=== PATIENT | male | born 1950 | race Two or more races ===

== ENCOUNTER 2021-10-11 09:51 | Outpatient (AMB) | payer OTHER, SELFPAY ==
[2021-10-11 10:01] VITALS: BP 182/75; PULSE 85; TEMP 36.4; BMI 26.0
--- NOTE | 2021-10-11 10:01 | U.OPVIS1 ---
Intake Vital Signs 10/11/21 10:01 Height 1.83 m Weight 87.09 kg BMI 26.0 BP 182/75 H Blood Pressure Location Left Upper Arm Position Sitting Pulse 85 Pulse Source Monitor Temp 97.5 F Temp Source Temporal Artery Scan Intake Visit Reasons: Uro Prostate Ultrasound/vaccinated Radiation Control Technician Required: Yes Is patient in pain?: No Allergy Allergies No Known Allergies Allergy (Unknown, Uncoded 10/11/21 10:02) Home Meds Medication Reconciliation metformin 1,000 mg tablet (Glucophage) 1,000 mg PO BID #0 tab 05/17/17 [History Confirmed 10/11/21] empagliflozin 10 mg tablet (Jardiance) 10 mg PO QDAY 06/27/21 [History Confirmed 10/11/21] glimepiride 4 mg tablet 4 mg PO BID 06/27/21 [History Confirmed 10/11/21] tamsulosin 0.4 mg capsule 0.4 mg PO QHS 08/05/21 [History Confirmed 10/11/21] Office Procedures Uro Level of Care Nursing/Assessment/Reassessment Patient Status: Established Patient Nursing Assessment/Reassessment: Update [facility] data in EMR, Vital Signs and Medication Reconciliation Coordination of Care: Comp Pt/Fam Ed for care Special Needs: Language special needs Miscellaneous Interventions: Phys Asssit w/procedure Established Patient Point Assignment: 80 Procedure IM Injection: No Transrectal Ultrasound: Yes Uro Prostate US My Supervising Practitioner for this visit is:: Hugo Jacob Prostate US: Yes Informed consent given: Yes Consent signed: Yes Time out staff in room: Yes IMMEDIATELY PRIOR TO START OF PROCEDURE: ALL MEMBERS of the procedural team are in attendance and actively involved together in the TIME-OUT and verified as applies to the patient:: Correct Patient Identity, Correct Site, Consent Signed and Accurate, Team Agrees on Procedure, Patient has completed pre-procedure preparations, Fleet Enema and Correct Patient Positioning Time out verified: Yes Time out date: 10/11/21 Time out time: 10:12 Urology Prostate Ultrasound PSA Density (ng/cc):: 2.41 Prostate Height (mm):: 3.72 Prostate Width (mm):: 5.74 Prostate Length (mm):: 5.86 Prostate volume (cc):: 63.40 Hypoechogenic areas exist which could represent areas of malignancy: No Hyperdense schos are seen suggestive of calculi in the capsule: Yes Seminal vesicles:: Normal Prostate median lobe:: Absent Bladder exam:: Abnormal (Large residual urine patient was sent to bathroom he voided 200 cc patient is on tamsulosin 0.4 mg p.o. daily) Documentation images were taken: Yes Visit Diagnosis: BPH with urinary obstruction and LUTS
== END 2021-10-11 10:42 | disposition home or self-care (01) ==
LOC: HODURO 09:51
PROVIDERS: PCP Internal Medicine; Visit Provider Urology

== ENCOUNTER → 2024-07-07 | Outpatient (CLI) | payer OTHER, SELFPAY ==
[2024-07-07 08:34] LABS: Hemoglobin 14.8 g/dL (13.5-16.0); Lymphocytes % (Auto) 21 % (10-50); Mean Corpuscular HGB Conc 33.6 g/dl (31.0-37.0); Mean Corpuscular Volume 92 fL (80-100); Neutrophils % (Auto) 60 % (37-80); Platelet Count 272 Thou/mm3 (140-440); RDW Standard Deviation 44.5 fL (35.1-43.9); Red Blood Count 4.77 Miln/mm3 (4.50-5.90)
[2024-07-07 08:35] LABS: Basophils # (Auto) 0.1 Thou/mm3 (0.0-0.2); Basophils % (Auto) 1 % (0-2.5); Eosinophils # (Auto) 0.7 Thou/mm3 (0.0-0.5); Eosinophils % (Auto) 10 % (0-10); Immature Granulocytes % (Auto) 0 % (0-0); Immature Granulocytes Auto 0.01 Thou/mm3 (0.00-0.00); Lymphocytes # (Auto) 1.4 Thou/mm3 (1.0-4.8); Monocytes # (Auto) 0.6 Thou/mm3 (0.0-0.8); Monocytes % (Auto) 8 % (0-12); Neutrophils # (Auto) 4.2 Thou/mm3 (1.8-7.7); Nucleated Red Blood Cell % 0 /100 WBC (0)
[2024-07-07 08:50] LABS: Alanine Aminotransferase 26 U/L (10-49); Albumin, Serum 4.7 gm/dL (3.4-4.8); Albumin/Globulin Ratio 1.7 (1.2-2.2); Alkaline Phosphatase 81 U/L (46-116); Anion Gap 9 (7-16); Aspartate Amino Transferase 14 U/L (0-34); BUN/Creatinine Ratio 15 Ratio (12-20); Bilirubin,Total 0.5 mg/dL (0.3-1.2); Blood Urea Nitrogen 15 mg/dL (9-23); Carbon Dioxide 28.3 mMol/L (20.0-31.0); Chloride 104 mMol/L (98-107); Cholesterol 175 mg/dL (132-200); Free T4 (Free Thyroxine) 1.46 ng/dL (0.89-1.76); Globulin 2.7 gm/dL (2.3-3.5); Glucose 173 mg/dL (74-106); HDL Cholesterol 44 mg/dL (40-60); LDL Cholesterol,Calculated 108 mg/dL (0-130); Osmolality,Calculated 286 (275-295); Potassium 4.5 mMol/L (3.4-5.1); Sodium 141 mMol/L (136-145); Total Protein 7.4 gm/dL (5.7-8.2); Triglycerides 117 mg/dL (30-150); eGFR > 60 See Note
[2024-07-07 08:55] LABS: Prostate Specific Antigen 3.75 ng/mL (0-4.00)
[2024-07-07 09:00] LABS: Vitamin D 25 Hydroxy Total 12.7 ng/mL (7.3-40.2)
[2024-07-07 09:30] LABS: Glucose Estimated Average 197 mg/dL (80-131); Hemoglobin A1C 8.5 % Hgb (4.8-6.0)
== END | disposition home or self-care (01) ==
PROVIDERS: PCP Internal Medicine; Referring Provider Internal Medicine; Visit Provider Internal Medicine
DX: Z00.00 Encounter for general adult medical examination without abnormal findings (principal); N40.1 Benign prostatic hyperplasia with lower urinary tract symptoms; E55.9 Vitamin D deficiency, unspecified
CPT/HCPCS: 36415; 80053; 80061; 82306; 83036; 84153; 84439; 84443; 85025

== ENCOUNTER → 2024-12-11 | Outpatient (BNVA) | payer OTHER, SELFPAY | END | disposition home or self-care (01) | PROVIDERS: PCP Internal Medicine; Referring Provider Internal Medicine; Visit Provider Urology | DX: N40.1 Benign prostatic hyperplasia with lower urinary tract symptoms (principal); N13.8 Other obstructive and reflux uropathy; N41.9 Inflammatory disease of prostate, unspecified; N50.3 Cyst of epididymis; N20.0 Calculus of kidney; E11.9 Type 2 diabetes mellitus without complications | CPT/HCPCS: 96372; 99203; J0696; J3490; G0463 ==

== ENCOUNTER → 2025-01-29 | Outpatient (BNVA) | payer OTHER, SELFPAY | END | disposition home or self-care (01) | PROVIDERS: PCP Internal Medicine; Referring Provider Internal Medicine; Visit Provider Urology | DX: N40.1 Benign prostatic hyperplasia with lower urinary tract symptoms (principal); R39.12 Poor urinary stream; E11.9 Type 2 diabetes mellitus without complications | CPT/HCPCS: 51741; 51798 ==

== ENCOUNTER → 2025-02-06 | Outpatient (BNVA) | payer OTHER, SELFPAY | END | disposition home or self-care (01) | PROVIDERS: PCP Internal Medicine; Referring Provider Internal Medicine; Visit Provider Urology | DX: N40.1 Benign prostatic hyperplasia with lower urinary tract symptoms (principal); N13.8 Other obstructive and reflux uropathy; R39.198 Other difficulties with micturition; E11.9 Type 2 diabetes mellitus without complications | CPT/HCPCS: 76872 ==

== ENCOUNTER → 2025-05-01 | Outpatient (CLI) | payer OTHER, SELFPAY ==
[2025-05-01 08:45] LABS: Basophils # (Auto) 0.1 Thou/mm3 (0.0-0.2); Basophils % (Auto) 1 % (0-2.5); Eosinophils # (Auto) 0.4 Thou/mm3 (0.0-0.5); Eosinophils % (Auto) 6 % (0-10); Hematocrit 41.1 % (41.0-53.0); Hemoglobin 14.2 g/dL (13.5-16.0); Immature Granulocytes Auto 0.02 Thou/mm3 (0.00-0.00); Lymphocytes # (Auto) 1.5 Thou/mm3 (1.0-4.8); Lymphocytes % (Auto) 23 % (10-50); Mean Corpuscular HGB Conc 34.5 g/dl (31.0-37.0); Mean Corpuscular Hemoglobin 31.3 pg (25.0-35.0); Mean Corpuscular Volume 91 fL (80-100); Monocytes # (Auto) 0.6 Thou/mm3 (0.0-0.8); Monocytes % (Auto) 9 % (0-12); Neutrophils # (Auto) 4.1 Thou/mm3 (1.8-7.7); Neutrophils % (Auto) 61 % (37-80); Nucleated Red Blood Cell # 0.00 Thou/mm3 (0.00-0.00); Nucleated Red Blood Cell % 0 /100 WBC (0); Platelet Count 239 Thou/mm3 (140-440); RDW Standard Deviation 43.0 fL (35.1-43.9); Red Blood Count 4.53 Miln/mm3 (4.50-5.90); White Blood Count 6.6 Thou/mm3 (3.8-10.6)
[2025-05-01 08:54] LABS: Glucose Estimated Average 212 mg/dL (80-131); Hemoglobin A1C 9.0 % Hgb (4.8-6.0)
[2025-05-01 09:00] LABS: Prostate Specific Antigen 3.23 ng/mL (0-4.00)
[2025-05-01 09:01] LABS: Vitamin D 25 Hydroxy Total 23.9 ng/mL (7.3-40.2)
[2025-05-01 09:02] LABS: Alanine Aminotransferase 20 U/L (10-49); Albumin, Serum 4.4 gm/dL (3.4-4.8); Albumin/Globulin Ratio 1.8 (1.2-2.2); Alkaline Phosphatase 80 U/L (46-116); Anion Gap 9 (7-16); Aspartate Amino Transferase 15 U/L (0-34); BUN/Creatinine Ratio 16 Ratio (12-20); Bilirubin,Total 0.4 mg/dL (0.3-1.2); Blood Urea Nitrogen 14 mg/dL (9-23); Calcium 10.1 mg/dL (8.3-10.6); Calcium (Corrected) 10.1 mg/dL (8.5-10.1); Carbon Dioxide 27.7 mMol/L (20.0-31.0); Cardiac Risk Estimate 3.8 RATIO (4.0-6.7); Chloride 105 mMol/L (98-107); Cholesterol 157 mg/dL (132-200); Creatinine (Component) 0.9 mg/dL (0.6-1.3); Free T4 (Free Thyroxine) 1.37 ng/dL (0.89-1.76); Globulin 2.5 gm/dL (2.3-3.5); Glucose 153 mg/dL (74-106); HDL Cholesterol 41 mg/dL (40-60); LDL Cholesterol,Calculated 87 mg/dL (0-130); Osmolality,Calculated 286 (275-295); Potassium 4.6 mMol/L (3.4-5.1); Sodium 142 mMol/L (136-145); Thyroid Stimulating Hormone 3.02 uIU/mL (0.55-4.78); Total Protein 6.9 gm/dL (5.7-8.2); Triglycerides 145 mg/dL (30-150); eGFR > 60 See Note
[2025-05-01 11:16] LABS: Creatinine MALB Rnd Ur 60 mg/dL (30-125); Microalbumin, Random Urine < 3 mg/L (0-300)
== END | disposition home or self-care (01) ==
LOC: COPL 07:36
PROVIDERS: PCP Internal Medicine; Referring Provider Internal Medicine; Visit Provider Internal Medicine
DX: Z00.00 Encounter for general adult medical examination without abnormal findings (principal); N40.1 Benign prostatic hyperplasia with lower urinary tract symptoms; E55.9 Vitamin D deficiency, unspecified
CPT/HCPCS: 36415; 80053; 80061; 82043; 82306; 82570; 83036; 84153; 84439; 84443; 85025

== ENCOUNTER → 2025-05-28 | Outpatient (BNVA) | payer OTHER, SELFPAY | END | disposition home or self-care (01) | PROVIDERS: PCP Internal Medicine; Referring Provider Internal Medicine; Visit Provider Urology | DX: N40.1 Benign prostatic hyperplasia with lower urinary tract symptoms (principal); R39.12 Poor urinary stream; E11.9 Type 2 diabetes mellitus without complications | CPT/HCPCS: 51741; 51798 ==

== ENCOUNTER → 2025-06-02 | Outpatient (CLI) | payer OTHER, SELFPAY ==
--- NOTE | 2025-06-02 13:03 | XR_ITS ---
Examination: CT brain head without contrast. 2-D sagittal coronal reconstructions Date and time of exam:June 02, 2025, 1328 hours INDICATIONS: Headaches after falling today CTDI: vol (mGy):54.2 DLP: (mGycm):1081 Technique: Multiple CT axial sections of the brain have been obtained, 5 mm slice thickness. Contrast has not been administered. 2-D sagittal, coronal reconstructions have been obtained Low dose protocols were performed. One or more of the following dose reduction techniques were used; automated exposure control, adjustment of the mA and/or KV according to patient size, use of iterative reconstruction technique. Findings: No significant ventricular enlargement. Intra-axial or extra-axial hemorrhage density is not seen. No mass effect or midline shift Basal cisterns are not remarkable. Fourth ventricle is midline. Cranial vault intact. Impression: Negative for acute hemorrhage, mass effect or midline shift
--- NOTE | 2025-06-02 13:03 | XR_ITS ---
Examination: CT soft tissue neck, without intravenous contrast. 2-D coronal reconstructions. 2-D sagittal reconstructions. Date and time of exam :June 02, 2025, 1330 hours INDICATIONS: Patient fell today with injury to the neck, neck pain. CTDI: vol (mGy):50.6 DLP: (mGycm):494 Technique: 1.25 mm axial sections of the neck of the obtained. Coronal and sagittal reconstructions have been obtained. Low dose protocols were performed. One or more of the following dose reduction techniques were used; automated exposure control, adjustment of the mA and/or KV according to patient size, use of iterative reconstruction technique. Findings: Satisfactory alignment cervical vertebral lesion Moderate to advanced degenerative disc disease C4-T1 Mineralization of the posterior longitudinal ligament at the C3-C5 level Intact odontoid No cervical fracture Facial bones appear intact No encroachment upon the nasopharynx oropharynx The larynx appears normal Normal epiglottis IMPRESSION: No cervical fracture No soft tissue neck hematoma or contusion
== END | disposition home or self-care (01) ==
PROVIDERS: PCP Internal Medicine; Referring Provider Internal Medicine; Visit Provider Internal Medicine
DX: S09.90XA Unspecified injury of head, initial encounter (principal); S19.9XXA Unspecified injury of neck, initial encounter; W19.XXXA Unspecified fall, initial encounter
CPT/HCPCS: 70450; 70490

== ENCOUNTER → 2025-08-26 | Outpatient (CLI) | payer OTHER, SELFPAY ==
[2025-08-26 12:14] LABS: Glucose Estimated Average 232 mg/dL (80-131); Hemoglobin A1C 9.7 % Hgb (4.8-6.0)
== END | disposition home or self-care (01) ==
LOC: COPL 11:18
PROVIDERS: PCP Internal Medicine; Referring Provider Internal Medicine; Visit Provider Internal Medicine
DX: E11.9 Type 2 diabetes mellitus without complications (principal)
CPT/HCPCS: 36415; 83036